=== PATIENT | female | born 1945 | race Caucasian/White ===

== ENCOUNTER 2018-01-23 08:12 | Day surgery (SDC) | payer MEDICARE, OTHER ==
[2018-01-23] MEDS ORDERED: ONDANSETRON 4 MG/2 ML VIAL IV ONE (08:13)
[2018-01-23] MEDS ORDERED: DEXAMETHASONE SOD PHOSPHATE 4 MG INJ IV ONE (08:13)
[2018-01-23] MEDS ORDERED: SEVOFLURANE 250 ML BOTTLE IH ONE (08:13)
[2018-01-23] MEDS ORDERED: LIDOCAINE HCL 1% 20 ML VIAL MC ONE (08:13)
[2018-01-23] MEDS ORDERED: PROPOFOL 200 MG/20 ML BOTTLE IV ONE (08:13)
[2018-01-23] MEDS ORDERED: FENTANYL CITRATE 100 MCG/2 ML AMPUL ONE ×2 (09:19→11:32)
[2018-01-23] MEDS ORDERED: MIDAZOLAM HCL 2 MG/2 ML VIAL ONE (09:20)
[2018-01-23] MEDS ORDERED: ROCURONIUM BROMIDE 50 MG/5 ML VIAL ONE (09:20)
[2018-01-23] MEDS ORDERED: SUCCINYLCHOLINE CHLORIDE 200 MG/10 ML VIAL ONE (09:20)
[2018-01-23] MEDS ORDERED: MORPHINE SULFATE PF 10 MG/10 ML AMPUL IV ONE (09:27)
[2018-01-23] MEDS ORDERED: BUPIVACAINE 0.25% 30 ML VIAL ONE (09:27)
[2018-01-23] MEDS ORDERED: HYDROMORPHONE 2 MG/1 ML DISP.SYRIN ONE (11:20)
[2018-01-23] MEDS ORDERED: KETOROLAC TROMETHAMINE 30 MG INJ ONE (11:24)
[2018-01-23] MEDS ORDERED: ONDANSETRON 4 MG/2 ML VIAL ONE (11:40)
[2018-01-23] MEDS ORDERED: HYDROCODONE/APAP 5-325MG TABLET ONE (12:58)
== END 2018-01-23 13:55 | disposition home or self-care (01) ==
LOC: EDSEX → SURGERY 08:12 → EDSTATUS 10:40 → SURGERY 13:55
PROVIDERS: ATTEND Orthopaedic Surgery
DX: M23.222 Derangement of posterior horn of medial meniscus due to old tear or injury, left knee (principal); M23.201 Derangement of unspecified lateral meniscus due to old tear or injury, left knee; M22.42 Chondromalacia patellae, left knee; M23.8X2 Other internal derangements of left knee; I10 Essential (primary) hypertension; E78.5 Hyperlipidemia, unspecified; Z87.891 Personal history of nicotine dependence; M81.0 Age-related osteoporosis without current pathological fracture; Z85.828 Personal history of other malignant neoplasm of skin; F41.9 Anxiety disorder, unspecified; Z98.890 Other specified postprocedural states
CPT/HCPCS: 36415; 89060; A4663; J0330; J1100; J1170; J1885; J2250; J2274; J2405; J3010; J3490; J7120

== ENCOUNTER 2018-05-09 13:50 | Emergency (ER) | payer MEDICARE, OTHER ==
[~2018-05-09] VITALS: Ht 167.6 cm; Wt 54.4 kg
--- NOTE | 2018-05-09 14:00 | NUR ---
Dr. Nolen here to see pt for MSE.
[2018-05-09] MEDS: ASPIRIN EC 325 MG TABLET.DR PO SCH ×2 (14:18→14:26)
[2018-05-09] MEDS ORDERED: ASPIRIN 325 MG TABLET ONE (14:23)
[2018-05-09 14:51] LABS: BASOPHILS # (AUTO) 0.1 K/uL (0.0-8.0); BASOPHILS % (AUTO) 0.8 % (0.0-2.0); EOSINOPHILS # (AUTO) 0.2 K/uL (0.0-0.7); EOSINOPHILS % (AUTO) 1.9 % (0.0-7.0); HEMATOCRIT 35.9 % (31.2-41.9); HEMOGLOBIN 11.8 g/dL (10.9-14.3); LYMPHOCYTES # (AUTO) 2.6 K/uL (20.0-40.0); LYMPHOCYTES % (AUTO) 31.7 % (20.5-51.5); MEAN CORPUSCULAR HEMOGLOBIN 26.5 uug (24.7-32.8); MEAN CORPUSCULAR HGB CONC 33 g/dL (32.3-35.6); MEAN CORPUSCULAR VOLUME 80.4 fL (75.5-95.3); MONOCYTES # (AUTO) 0.6 K/uL (2.0-10.0); MONOCYTES % (AUTO) 6.9 % (0.0-11.0); NEUTROPHILS # (AUTO) 4.9 K/uL (1.8-8.9); NEUTROPHILS % (AUTO) 58.7 % (38.5-71.5); PLATELET COUNT (AUTO) 277 K/uL (179-408); RED BLOOD CELL COUNT(AUTO) 4.47 MIL/uL (3.63-4.92); WHITE BLOOD COUNT (AUTO) 8.3 K/uL (3.8-11.8)
[2018-05-09 14:55] LABS: CARBON DIOXIDE 25 mmol/L (21-32); CHLORIDE 106 mmol/L (98-107); CREATININE 0.6 mg/dL (0.6-1.3); GLUCOSE 92 mg/dL (74-106); POTASSIUM 3.9 mmol/L (3.5-5.1); UREA NITROGEN, BLOOD 16 mg/dL (7-18)
[2018-05-09] MEDS ORDERED: IBUPROFEN PO (15:06)
[2018-05-09] MEDS ORDERED: HEPARIN SODIUM,PORCINE 5,000 UNITS/ML VIAL IV ONE (15:15)
[2018-05-09] MEDS ORDERED: HEPARIN/D5W DRIP 500 ML IV ONE (15:15)
[2018-05-09] MEDS ORDERED: HEPARIN/D5W DRIP 500 ML ONE (15:25)
[2018-05-09] MEDS ORDERED: HEPARIN SODIUM,PORCINE 5,000 UNITS/ML VIAL ONE (15:26)
--- NOTE | 2018-05-09 15:58 | NUR ---
Full telephone SBAR report given to BRIAN Ríos.
--- NOTE | 2018-05-09 17:27 | NUR ---
Call made to [facility]. Awaiting return call for accepting physician.
--- NOTE | 2018-05-09 18:00 | NUR ---
Full SBAR report given to ambulance by Dr. Nolen. Pt taken with EMS ambulance to [facility]. Notified [facility] and already made aware of pt's departure.
== END 2018-05-09 18:00 | disposition short-term general hospital (02) ==
LOC: ER 13:50 → CCU 16:29 → UNDOADMIN 16:29 → ER 18:00
DX: I21.9 Acute myocardial infarction, unspecified (principal); I10 Essential (primary) hypertension
CPT/HCPCS: 36415; 70030-TC; 71045; 85025; 85730; 93005; A4663; J1644